=== PATIENT | female | born 1950 | race Two or more races ===

== ENCOUNTER 2021-12-24 23:28 | Emergency (ER) | payer OTHER ==
[~2021-12-24] VITALS: Ht 157.5 cm; Wt 58.1 kg
[2021-12-25] MEDS ORDERED: FAMOTIDINE20 MG (01:43)
[2021-12-25] MEDS ORDERED: LOSARTAN POTASS25 MG (01:43)
[2021-12-25] MEDS ORDERED: DULOXETINE HCL60 MG (01:43)
[2021-12-25] MEDS ORDERED: QUETIAPINE FUMA50 MG (01:43)
[2021-12-25] MEDS ORDERED: QUETIAPINE FUM100 MG (01:43)
[2021-12-25] MEDS ORDERED: XARELTO20 M1 (01:44)
[2021-12-25] MEDS ORDERED: VENTOLIN HFA18 GM (01:44)
[2021-12-25] MEDS ORDERED: ATORVASTATIN CA40 MG (01:44)
[2021-12-25] MEDS ORDERED: METFORMIN HCL500 M4 (01:44)
[2021-12-25] MEDS ORDERED: TRAZODONE HCL50 MG (01:44)
[2021-12-25] MEDS ORDERED: LEVOTHYROXINE100 MCG (01:45)
[2021-12-25] MEDS ORDERED: TRELEGY ELLIPT1 EACH (01:46)
[2021-12-25] MEDS ORDERED: ADULT ASPIRIN81 MG (01:47)
[2021-12-25] MEDS ORDERED: KETO10TA2 PO (05:33)
== END 2021-12-25 05:56 ==
LOC: ER 23:28
DX: S82.402A Unspecified fracture of shaft of left fibula, initial encounter for closed fracture (principal); S99.912A Unspecified injury of left ankle, initial encounter; W18.30XA Fall on same level, unspecified, initial encounter; Y93.9 Activity, unspecified; Y92.019 Unspecified place in single-family (private) house as the place of occurrence of the external cause; E11.9 Type 2 diabetes mellitus without complications; Z79.84 Long term (current) use of oral hypoglycemic drugs; I10 Essential (primary) hypertension; S09.90XA Unspecified injury of head, initial encounter